=== PATIENT | female | born 1960 | race Caucasian/White ===

== ENCOUNTER 2017-06-29 20:13 | Inpatient (IN) ==
[2017-06-29] MEDS ORDERED: Ipratropium/Albuterol Neb 3 ML IH ONE (20:19)
--- NOTE | 2017-06-29 20:21 | Emergency Department Note ---
Disposition Clinical Impression: Hyponatremia, Chest wall pain Disposition: Admitted As Inpatient Condition: Good Referrals: Mateo Way DO [Primary Care Provider] - Forms: ED Satisfaction Letter Chest Pain HPI - General Chief Complaint: ED Chest Pain Stated Complaint: CP Time Seen by Provider: 06/29/17 20:18 Source: patient Mode of arrival: EMS Limitations: no limitations Vital Signs Reviewed: Yes Nursing Notes Reviewed: Yes - History of Present Illness HPI Narrative: 57-year-old female history of hypertension, seizures, depression who presents to the ER via EMS due to chest pain and shortness of breath. Patient reports symptoms began 2 days ago. Describes constant central chest pain as well as shortness of breath. States she did have an episode of nausea and vomiting prior to arrival and feels like she has had a lot of gas lately. She denies a prior history of cardiac disease. No history of DVT or PE. No recent illnesses. She denies fevers, sore throat, cough, abdominal pain, diarrhea. Normal bowel movements. No prior cardiac workup with the exception of preoperative clearance by cardiology once. She was given 4 baby aspirin prior to arrival. No other complaints. Pt complaint: chest pain Onset (ago): day(s) (2) Duration: constant Pain Location: substernal Severity: moderate Quality: tightness Pain Radiation: none Improves with: nothing Worsens with: palpation Associated symptoms: Reports: nausea, vomiting, dyspnea. Denies: diaphoresis, fever, cough Treatments prior to arrival chest pain: aspirin - Related Data On Oral Contraceptives: No Allergies Allergy/AdvReac Type Severity Reaction Status Date / Time Erythromycin Base Allergy See Verified 06/29/17 20:22 Comments Penicillins Allergy See Verified 06/29/17 20:22 Comments All systems ED: reviewed and negative except as stated. Constitutional: Denies: fever Cardiovascular: Reports: chest pain Respiratory: Reports: dyspnea. Denies: cough, wheezes Gastrointestinal: Reports: nausea, vomiting. Denies: abdominal pain, diarrhea Genitourinary: Denies: dysuria, hematuria Chest Pain PMH - Past Medical History Medical history: Reports: hypertension, seizures Psychiatric history: Reports: depression - Social History Smoking Status: Former smoker Physical Exam - General Limitations: no limitations General appearance: alert, in no apparent distress - Head Head exam: atraumatic, normocephalic - Eye Eye exam: Present: normal appearance - ENT ENT exam: normal exam - Neck Neck exam: Present: normal inspection - Chest Chest inspection: Present: normal inspection, symmetric chest wall rise, tenderness (She has reproducible pain over her sternum) - Respiratory Respiratory exam: Present: normal lung sounds bilaterally. Absent: respiratory distress, wheezes, accessory muscle use, prolonged expiratory phase - Cardiovascular Cardiovascular exam: Present: regular rate, normal rhythm, normal heart sounds - Abdominal Exam Abdominal exam: Present: soft, Non-Tender. Absent: tenderness - Extremities Exam Extremities exam: Present: normal inspection, full ROM - Expanded Upper Extremity Exam Shoulder exam: Present: normal inspection, full ROM Arm exam: Present: normal inspection, full ROM Elbow exam: Present: normal inspection, full ROM Forearm/Wrist exam: Present: normal inspection, full ROM Hand exam: Present: normal inspection, full ROM - Expanded Lower Extremity Exam Hip/Pelvis exam: Present: normal inspection, full ROM Upper leg exam: Present: normal inspection, full ROM Knee exam: Present: normal inspection, full ROM Lower leg exam: Present: normal inspection, full ROM Ankle exam: Present: normal inspection, full ROM Foot/toe exam: Present: normal inspection, full ROM Neurovascular/Tendon exam: Absent: motor deficit, sensory deficit - Neurological Exam Neurological exam: Present: alert - Psychiatric Psychiatric exam: Present: normal affect, normal mood - Skin Skin exam: Present: warm, dry, intact Course Course Narrative: Patient seen and examined. We will obtain an EKG, chest x-ray as well as labs including troponin. She has had 2 days of constant chest pain. I suspect if her troponin is within normal limits she will be able to go home with follow-up to her PCP. Patient given aspirin prior to arrival. - Reevaluation(s) Reevaluation #1: Discussed results of imaging and lab with the patient. She had a severely low sodium of 118. She does report to me that she would have months ago she saw her doctor after having a kidney stone and they told her to drink more water. She states she is having roughly 3 L of water intake a day. We will give her a liter of normal saline and admit for hyponatremia. Seizure precautions ordered. Vital Signs Temperature 98.1 F 06/29/17 20:13 Pulse Rate 66 06/29/17 20:13 Respiratory Rate 18 06/29/17 20:13 Blood Pressure 172/74 06/29/17 20:13 O2 Sat by Pulse Oximetry 100 06/29/17 20:13 Temperature 98.1 F 06/29/17 20:13 Pulse Rate 63 06/29/17 21:18 Respiratory Rate 18 06/29/17 21:18 Blood Pressure 191/74 06/29/17 21:18 O2 Sat by Pulse Oximetry 100 06/29/17 21:18 Oxygen Delivery Oxygen Delivery Room Air Chest Pain - MDM Narrative Medical decision making narrative: 57-year-old female presents to the ER due to weakness, chest pain, shortness of breath. Symptoms for 2 days. Chest pain is reproducible. Her EKG shows no ischemic features. Chest x-ray unremarkable. Initial troponin within normal limits. She was found to have a sodium level of 118. She reports taking 3 L of water daily for the last 2-1/2 months. She will be admitted for hyponatremia given the fact that she also has seizure disorder. Patient accepted by the hospitalist service. - Lab Data Lab results reviewed: Yes I reviewed the patient's lab results. Result diagrams: 06/29/17 20:44 06/29/17 20:44 Lab Results 06/29/17 06/29/17 06/29/17 Range/Units 20:44 20:44 20:44 WBC 8.2 (4.3-11.1) K/mcL RBC 3.76 L (3.82-4.97) M/mcL Hgb 11.0 L (11.5-15.4) g/dL Hct 31.4 L (35.3-44.9) % MCV 83.5 (83.0-100.0) fL MCH 29.3 (28.0-33.3) pg MCHC 35.0 (31.6-35.5) g/dL RDW 12.0 (11.5-14.5) % Plt Count 280 (140-400) K/mcL MPV 8.6 L (9.4-12.4) fL Immature Gran % 0.6 (0-4) % Seg Neutrophils % 72.0 % Lymphocytes % 19.1 % Monocytes % 6.0 % Eosinophils % 1.8 % Basophils % 0.5 % Neutrophils # 5.9 (1.6-8.9) K/mcL Lymphocytes # 1.6 (0.6-4.6) K/mcL Monocytes # 0.5 (0.0-1.3) K/mcL Eosinophils # 0.2 (0.0-0.6) K/mcL Basophils # 0.0 (0.0-0.2) K/mcL Sodium 118 L* (136-145) mEq/L Potassium 4.3 (3.5-4.5) mEq/L Chloride 84 L (98-109) mEq/L Carbon Dioxide 24 (19-29) mEq/L BUN 10 (7-20) mg/dL Creatinine 0.76 (0.57-1.11) mg/dL Est GFR ( Amer) > 60 (> 60) Est GFR (Non-Af Amer) > 60 (> 60) BUN/Creatinine Ratio 13 (6-26) Glucose 128 H (70-99) mg/dL Calculated Osmolality 247 L (280-300) Calcium 9.3 (8.6-10.8) mg/dL Troponin I (0-0.03) ng/mL B-Natriuretic Peptide 67 (0-100) pg/mL 06/29/17 Range/Units 20:44 WBC (4.3-11.1) K/mcL RBC (3.82-4.97) M/mcL Hgb (11.5-15.4) g/dL Hct (35.3-44.9) % MCV (83.0-100.0) fL MCH (28.0-33.3) pg MCHC (31.6-35.5) g/dL RDW (11.5-14.5) % Plt Count (140-400) K/mcL MPV (9.4-12.4) fL Immature Gran % (0-4) % Seg Neutrophils % % Lymphocytes % % Monocytes % % Eosinophils % % Basophils % % Neutrophils # (1.6-8.9) K/mcL Lymphocytes # (0.6-4.6) K/mcL Monocytes # (0.0-1.3) K/mcL Eosinophils # (0.0-0.6) K/mcL Basophils # (0.0-0.2) K/mcL Sodium (136-145) mEq/L Potassium (3.5-4.5) mEq/L Chloride (98-109) mEq/L Carbon Dioxide (19-29) mEq/L BUN (7-20) mg/dL Creatinine (0.57-1.11) mg/dL Est GFR ( Amer) (> 60) Est GFR (Non-Af Amer) (> 60) BUN/Creatinine Ratio (6-26) Glucose (70-99) mg/dL Calculated Osmolality (280-300) Calcium (8.6-10.8) mg/dL Troponin I 0.00 (0-0.03) ng/mL B-Natriuretic Peptide (0-100) pg/mL - Radiology Data Radiology results reviewed: Yes I reviewed the patient's radiology results. Chest X-Ray 06/29/17 20:18 IMPRESSION: No acute cardiopulmonary process. D/ / Dm Betancourt MD / Dm Betancourt MD Interpreting Provider: Dm Betancourt MD - EKG Data EKG attestation: Yes I reviewed and interpreted this EKG. EKG results narrative: EKG demonstrates sinus rhythm with a rate of 65 bpm. Left axis deviation. Poor R-wave progression. Normal intervals. There is slight less than 1 mm depressions in leads aVF, V3 through V5 that appear unchanged from her previous EKG. No gross ST elevations. No significant changes from previous EKG dated 19/11. Heart Score - Score History: Slightly Suspicious EKG: Non Specific repolarisation Disturbance Age: 45-65 Risk Factors: 1-2 risk factors Troponin: Less than normal limit HEART Score Total: 3 Critical Care Time Critical Care Time: Yes Total Critical Care Time: 35 Attestation: Critical care performed: Time is exclusive of separately billable procedures. Time includes: direct patient care, patient reassessment, coordination of patient care, interpretation of data (laboratory data, radiology data, and respiratory data), review of patient's medical records, medical consultation and documentation of patient care. Procedures included in critical care time: Procedures excluded from critical care time: S.B.A.R. - S.B.A.R. Situation: Demographics, MOA Background: Presenting Complaint, Relevant PMH, Meds, & Allergies Assessment: Vital Signs, Course and respsone to treatment, Exam Concerns, Patient/Family Expectation, Pertinant Lab Results Recommendation: Barrier(s) to disposition, Recommendation based on pending studies, treatments, or consults Jorden Report Given to: Dr. Sandro Leonardo Repor Time: 22:09 Attestation Statement - Attestation Attestation: I, Eric Holley DO, examined this patient [id number] and my medical decision-making was reviewed with Dr. Girma Em, Resident Physician. I agree with the documented findings, disposition and treatment plan as described except to the extent set forth below. Please see my progress notes for details. 57-year-old female presents emergency room with 2-3 days worth of chest discomfort pressure and heaviness. Patient is had intermittent nausea and vomiting. Denies any fevers or chills. She has not had any productive cough or sputum. Lungs and vital signs otherwise stable. Heart is regular. Abdomen is soft. EKG to be collected as well as imaging studies including chest x-ray. CBC chemistry troponin will be evaluated and controlled. Breathing treatments to be provided. Patient does not appear to have acute coronary syndrome at this point. She is low risk based on her heart score. Patient will have symptomatic treatment here today and then discuss disposition. Most of her symptoms appear to be heaviness secondary to inability to hold breath and then burning sensation in her lungs. We will continue to monitor his treatment course is completed. Unremarkable. See detailed documentation of the physical exam, medical intervention, medical decision-making and disposition of the resident physician's note [id number] 57-year-old female found to have hyponatremia of unknown etiology. Patient has been ingesting approximately 2-3 gallons of water today coronary secondary to summary telling her that her kidney function was not as good as it used to be. Patient denies any other complaints at this point the rest of her examination is unremarkable. Patient to be provided with IV fluid hydration here and otherwise free water restriction at this point. Disposition will be admission to hospital for definitive management.
[2017-06-29 21:09] LABS: Basophils % 0.5 %; Eosinophils # 0.2 K/mcL (0.0-0.6); Eosinophils % 1.8 %; Hematocrit 31.4 % (35.3-44.9); Immature Granulocytes % 0.6 % (0-4); Lymphocytes # 1.6 K/mcL (0.6-4.6); Lymphocytes % 19.1 %; Mean Corpuscular Hemoglobin 29.3 pg (28.0-33.3); Mean Corpuscular Volume 83.5 fL (83.0-100.0); Mean Platelet Volume 8.6 fL (9.4-12.4); Monocytes # 0.5 K/mcL (0.0-1.3); Neutrophils # 5.9 K/mcL (1.6-8.9); Platelet Count 280 K/mcL (140-400); Red Blood Count 3.76 M/mcL (3.82-4.97)
[2017-06-29 21:22] LABS: BUN/Creatinine Ratio 13 (6-26); Blood Urea Nitrogen 10 mg/dL (7-20); Calcium 9.3 mg/dL (8.6-10.8); Carbon Dioxide 24 mEq/L (19-29); Chloride 84 mEq/L (98-109); Glucose 128 mg/dL (70-99); Osmolality,Calculated 247 (280-300); Potassium 4.3 mEq/L (3.5-4.5); eGFR For African Americans > 60 (> 60); eGFR For Non-African Americans > 60 (> 60)
[2017-06-29] MEDS ORDERED: methylPREDNISolone 125 MG/2 ML VIAL IVP ONE (21:23)
[2017-06-29 21:27] LABS: Sodium 118 mEq/L (136-145)
[2017-06-29] MEDS ORDERED: 0.9 % Sodium Chloride 1,000 ML IVC ONE (21:29)
[2017-06-30] MEDS ORDERED: Naloxone 0.4 MG/ML INJ IVP PRN (01:03)
[2017-06-30] MEDS ORDERED: Acetaminophen 325 MG TABLET PO PRN (01:03)
[2017-06-30] MEDS ORDERED: *HR* Morphine 2 MG/ML SYRINGE IVP PRN (01:03)
[2017-06-30] MEDS ORDERED: *HR* Promethazine 25 MG/ML VIAL IVP PRN (01:03)
[2017-06-30] MEDS ORDERED: *HR* Promethazine 25 MG/ML VIAL ONE (01:30)
--- NOTE | 2017-06-30 01:37 | Internal Med History&Physical ---
Date of Encounter: 06/30/17 Time of Encounter: 00:45 Assessment and Plan (1) Chest pain Current visit: Yes Status: Acute 1. Will cycle troponins and EKG's. 2. Will order ECHO. 3. Patient will need stress test once hyponatremia issue resolved -- can be done as outpatient. Qualifiers: Chest pain type: precordial pain Qualified Code(s): R07.2 - Precordial pain (2) Hyponatremia Current visit: Yes Status: Acute 1. Will stop Dyazide. 2. Monitor serial sodium levels every 6 hours for now. 3. Fluid restriction 1500 ml. 4. Patient counseled on the risks of polydipsia. (3) Hypertension Current visit: Yes Status: Chronic 1. Continue home meds as appropriate. 2. Will add hydralazine PRN for uncontrolled HTN. 3. Monitor BP and adjust meds as needed. Qualifiers: Hypertension type: essential hypertension Qualified Code(s): I10 - Essential (primary) hypertension (4) DVT prophylaxis Current visit: Yes Status: Acute 1. Heparin SQ. Internal Medicine - H&P: HPI Chief complaint: chest pain Admitted From: Emergency Dept Plans for Post Hospital Care: Home History of present illness: Ms. Thorpe is a 57 year old female who presents with a 2 day history of chest pain which she describes as substernal and heavy pressure in nature. It was unrelated to rest or activity. She had associated shortness of breath. She had some diaphoresis as well. She came to the ER for evaluation and was subsequently admitted. Initial workup was negative. However, she was found to have profound hyponatremia with a sodium of 118. I'm not exactly sure why, but the patient received a liter of saline and Solu-Medrol in the ER prior to being admitted to the hospitalist service. Upon my assessment of the patient, she has no chest pain or shortness of breath presently. She denies ever being told she has any history of sodium problems. However, I researched old records and the last set of labs I could find on her was about 11 years ago. She was noted have sodium levels in the 120s to 130s at that time. She has been on Dyazide for many years. Additionally, she has been on Trileptal for many years for seizure disorder. She denies any head trauma, stroke, or any brain abnormalities to suggest etiology for hyponatremia. She does drink a significant amount of water per day (roughly 2- 3 L per day), because she was advised as such for her history of kidney stones. I suspect her hyponatremia is secondary to her Dyazide diuretic as well as her polydipsia. I also inquired with our pharmacy regarding the possibility of hyponatremia with Trileptal. It has about a 1-5% incidence of hyponatremia as well. Past Med Surg Social Fam HX - Past Medical History Attestation: Yes The following information was validated with the patient. Source: patient, obtained from family Medical history: hypertension, seizures Psychiatric history: depression - Past Surgical History Surgical History: knee replacement - Social History Smoking Status: Former smoker Smokeless Tobacco Status: No Alcohol use: occasionally Drug use: none Current living situation: Home, With Family Activity Level: Independent ambulation - Family History Mother Adopted: No Living Status: Age at : 72 Cause of : unknown Hx Family Neurologic Disorders: Yes (MS) Father Living Status: Hx Family Cardiac Disorders: Yes Internal Medicine - H&P: Meds Atenolol [Tenormin] 25 mg PO BID 06/29/17 [History] OXcarbazepine [Trileptal] 1,200 mg PO HS 06/29/17 [History] OXcarbazepine [Trileptal] 900 mg PO QAM 06/29/17 [History] Triamterene/HCTZ 37.5/25mg [Dyazide] 1 each PO DAILY 06/29/17 [History] 3 Allergy/AdvReac Type Severity Reaction Status Date / Time Erythromycin Base Allergy See Verified 06/29/17 20:22 Comments Penicillins Allergy See Verified 06/29/17 20:22 Comments - Constitutional Constitutional: no chills, no fever(s), no night sweats - EENT Eyes: no blurry vision, no change in vision Ears: no ear pain, no tinnitus Nose, mouth and throat: no nasal congestion, no nasal discharge, no sinus pressure, no sore throat - Cardiovascular Cardiovascular ROS IM: chest pain, diaphoresis, dyspnea, dyspnea on exertion, no edema, no orthopnea, no palpitations - Respiratory Respiratory: no cough, no dyspnea, no hemoptysis - Gastrointestinal Gastrointestinal: no abdominal pain, no diarrhea, no hematemesis, no hematochezia, no melena, no nausea, no vomiting - Genitourinary Genitourinary: no dysuria, no flank pain, no hematuria - Musculoskeletal Musculoskeletal ROS IM: no arthralgias, no back pain, no muscle cramps, no muscle weakness - Integumentary Integumentary IM: no rash, no jaundice - Neurological Neurological ROS: convulsions (~ once every 2-3 months), no focal weakness, no frequent falls, no headache(s) - Psychiatric Psychiatric: no anxiety, no depression - Endocrine Endocrine IM: no polydipsia, no polyuria - Allergic/Immunologic Allergic/Immunologic: no wheezing, no GI upset with certain foods - Constitutional Vitals: Temp Pulse Resp BP Pulse Ox 98.6 F 76 16 178/71 96 06/29/17 23:04 06/30/17 01:09 EST 06/29/17 23:04 06/30/17 01:09 EST 23:04 General appearance: Present: cooperative, A&O X 3, pleasant, no acute distress - Head Head exam: Present: atraumatic, normal inspection - Expanded Head Exam Head exam expanded: Absent: abrasion, contusion, general tenderness - Eye Eye exam: Present: EOMI, normal appearance, PERRL. Absent: scleral icterus Pupils: Present: normal accommodation - ENT ENT exam: Present: mucous membranes moist, normal exam - Neck Neck exam general surgery: Present: full ROM, supple. Absent: tenderness, nuchal rigidity - Expanded Neck Exam Neck exam: Absent: carotid bruit - Respiratory Respiratory exam: Present: CTAB. Absent: chest wall tenderness, rales, respiratory distress, rhonchi, wheezes - Cardiovascular Cardiovascular exam: Present: RRR, +S1, +S2. Absent: diastolic murmur, systolic murmur - GI/Abdominal GI/Abdominal exam: Present: normal bowel sounds, soft. Absent: hepatomegaly, mass, splenomegaly, tenderness - Extremities Exam Extremities exam: Present: warm, radial pulses palpable and symmetrical. Absent : calf tenderness, joint swelling, pedal edema, tenderness - Back Exam Back exam: Absent: CVA tenderness (L), CVA tenderness (R) - Neurological Exam Neurological exam: Present: alert, CN II-XII intact, oriented X3, no focal deficits, strengths equal and symetr throughout - Psychiatric Psychiatric exam: Present: normal affect, normal mood - Skin Skin exam: Present: dry, warm. Absent: rash Internal Med - H&P Results - Labs CBC & Chem 7: 06/29/17 20:44 06/29/17 20:44 - EKG Data -: EKG Interpreted by Myself EKG shows normal: sinus rhythm - EKG Data Prior EKG available for review: no EKG comments: 06/30/17 01:58 EST Sinus rhythm with LAD; Poor R wave progression in precordial leads. - Diagnostic Studies Chest x-ray Status: image reviewed by me (negative)
[2017-06-30] MEDS: OXcarbazepine 150 MG TABLET PO SCH ×3 (01:53→21:43)
[2017-06-30 03:08] LABS: INR 1.1; Prothrombin Time 11.3 Seconds (9.4-12.1)
[2017-06-30 03:11] LABS: Activated Partial Thrombo Time 26.2 Seconds (26.0-36.0)
[2017-06-30 03:13] LABS: BUN/Creatinine Ratio 12 (6-26); Blood Urea Nitrogen 10 mg/dL (7-20); Calcium 9.2 mg/dL (8.6-10.8); Carbon Dioxide 22 mEq/L (19-29); Chloride 85 mEq/L (98-109); Glucose 163 mg/dL (70-99); Osmolality,Calculated 249 (280-300); Potassium 3.8 mEq/L (3.5-4.5); eGFR For African Americans > 60 (> 60); eGFR For Non-African Americans > 60 (> 60)
[2017-06-30 03:14] LABS: Alanine Aminotransferase 21 Units/L (0-55); Albumin 3.5 g/dL (3.5-5.0); Albumin/Globulin Ratio 0.9 (1.1-2.2); Alkaline Phosphatase 108 Units/L (38-126); Aspartate Amino Transferase 17 Units/L (5-34); BUN/Creatinine Ratio 12 (6-26); Bilirubin,Total 0.5 mg/dL (0.2-1.2); Blood Urea Nitrogen 10 mg/dL (7-20); Calcium 9.1 mg/dL (8.6-10.8); Carbon Dioxide 23 mEq/L (19-29); Chloride 84 mEq/L (98-109); Chol/HDL Ratio 3.5 (0-4.9); Cholesterol 242 mg/dL (< 200); Globulin 3.8 g/dL (2.4-3.5); Glucose 164 mg/dL (70-99); HDL Cholesterol 69 mg/dL (40-59); LDL Cholesterol,Calculated 152 mg/dL (0-99); Magnesium 1.5 mg/dL (1.6-2.6); Osmolality,Calculated 247 (280-300); Potassium 3.7 mEq/L (3.5-4.5); Total Protein 7.3 g/dL (6.0-8.3); Triglycerides 103 mg/dL (< 150); eGFR For African Americans > 60 (> 60); eGFR For Non-African Americans > 60 (> 60)
[2017-06-30 03:16] LABS: Sodium 118 mEq/L (136-145)
[2017-06-30 03:21] LABS: Sodium 117 mEq/L (136-145)
[2017-06-30] MEDS: *HR* Heparin 5,000 UNIT/ML VIAL SQ SCH ×3 (05:33→21:43)
[2017-06-30] MEDS ORDERED: 0.9 % Sodium Chloride 500 ML IVC ONE (08:15)
[2017-06-30] MEDS: amLODIPine 5 MG TABLET PO SCH (08:28)
[2017-06-30 08:57] LABS: BUN/Creatinine Ratio 14 (6-26); Blood Urea Nitrogen 10 mg/dL (7-20); Calcium 8.9 mg/dL (8.6-10.8); Carbon Dioxide 22 mEq/L (19-29); Chloride 87 mEq/L (98-109); Glucose 122 mg/dL (70-99); Osmolality,Calculated 246 (280-300); Potassium 4.2 mEq/L (3.5-4.5); eGFR For African Americans > 60 (> 60); eGFR For Non-African Americans > 60 (> 60)
[2017-06-30 09:06] LABS: Sodium 118 mEq/L (136-145)
--- NOTE | 2017-06-30 10:04 | Internal Med Progress Note ---
Date of Encounter: 06/30/17 Time of Encounter: 10:02 - Assessment and plan (1) Hyponatremia Current Visit: Yes Status: Acute Assessment and plan: Acute on chronic Na 117-118 Continue to monitor q6H Give NaCl 500cc Patient is asymptomatic Continue to hold diuretics (2) Morbid obesity with BMI of 60.0-69.9, adult Current Visit: Yes Status: Chronic Assessment and plan: Lifestyle modification PCP to consider for Bariatric surgery (3) Chest pain Current Visit: Yes Status: Acute Assessment and plan: Atypical Trops negative X3 EKG non-ischemic Follow ECHO reports Qualifiers: Chest pain type: precordial pain Qualified Code(s): R07.2 - Precordial pain (4) Hypertension Current Visit: Yes Status: Chronic Assessment and plan: Uncontrolled Add Norvasc to regimen Qualifiers: Hypertension type: essential hypertension Qualified Code(s): I10 - Essential (primary) hypertension (5) DVT prophylaxis Current Visit: Yes Status: Acute Assessment and plan: Heparin SQ (6) Hypomagnesemia Current Visit: Yes Status: Acute Assessment and plan: Replaced, monitor - Subjective Interval history: Seen and evaluated at bedside No new complains She is being managed for chest pain and hyponatremia - Constitutional Vitals: Temp Pulse Resp BP Pulse Ox 98.0 F 78 14 164/72 99 06/30/17 06:53 06/30/17 06:53 06/30/17 06:53 06/30/17 06:53 06/30/17 06:53 General appearance: Present: cooperative, A&O X 3, morbidly obese, pleasant, no acute distress - Head Head exam: Present: atraumatic, normocephalic - Eye Eye exam: Present: PERRL, conjuntiva pink, sclera anicteric Pupils: Present: PERRL - Neck Neck exam general surgery: Present: supple, trachea midline. Absent: lymphadenopathy - Respiratory Respiratory exam: Present: CTAB. Absent: accessory muscle use, rales, rhonchi, wheezes - Cardiovascular Cardiovascular exam: Present: RRR, +S1, +S2. Absent: diastolic murmur, gallop, rubs, systolic murmur - GI/Abdominal GI/Abdominal exam: Present: normal bowel sounds, soft, no peritoneal signs. Absent: distended, tenderness - Extremities Exam Extremities exam: Present: warm, radial pulses palpable and symmetrical. Absent : calf tenderness, cyanotic, pedal edema - Neurological Exam Neurological exam: Present: alert, CN II-XII intact, oriented X3, no focal deficits. Absent: pronater drift, facial droop, speech deficit - Skin Skin exam: Present: dry, intact Internal Medicine: Result - Labs CBC & Chem 7: 06/29/17 20:44 06/30/17 08:35 Labs: BMP 06/30/17 06/30/17 06/30/17 02:30 02:30 08:35 Sodium 118 L* 117 L* 118 L* Potassium 3.8 3.7 4.2 Chloride 85 L 84 L 87 L Carbon Dioxide 22 23 22 BUN 10 10 10 Creatinine 0.83 0.84 0.70 Glucose 163 H 164 H 122 H Calcium 9.2 9.1 8.9 Cardiac Enzymes 06/30/17 06/30/17 Range/Units 02:30 08:35 Troponin I 0.00 0.01 (0-0.03) ng/mL Liver Function 06/30/17 Range/Units 02:30 Total Bilirubin 0.5 (0.2-1.2) mg/dL AST 17 (5-34) Units/L ALT 21 (0-55) Units/L Alkaline Phosphatase 108 (38-126) Units/L Albumin 3.5 (3.5-5.0) g/dL - ABG Interpretation ABG results: PT/INR, D-dimer PT 11.3 Seconds (9.4-12.1) 06/30/17 02:30 Consult Discharge Plan - Plan Referrals: Mateo Way DO [Primary Care Provider] -
[2017-06-30] MEDS ORDERED: Perflutren Lipid Microsphere 1.3 ML in 0.9 % Sodium Chloride 8.7 ML IVP ONE (13:57)
[2017-06-30 16:13] LABS: BUN/Creatinine Ratio 15 (6-26); Blood Urea Nitrogen 12 mg/dL (7-20); Calcium 8.7 mg/dL (8.6-10.8); Carbon Dioxide 18 mEq/L (19-29); Chloride 89 mEq/L (98-109); Glucose 152 mg/dL (70-99); Osmolality,Calculated 255 (280-300); Potassium 3.6 mEq/L (3.5-4.5); Sodium 121 mEq/L (136-145); eGFR For African Americans > 60 (> 60); eGFR For Non-African Americans > 60 (> 60)
[2017-06-30 21:33] LABS: BUN/Creatinine Ratio 19 (6-26); Blood Urea Nitrogen 14 mg/dL (7-20); Calcium 8.9 mg/dL (8.6-10.8); Carbon Dioxide 20 mEq/L (19-29); Chloride 89 mEq/L (98-109); Glucose 136 mg/dL (70-99); Osmolality,Calculated 253 (280-300); Potassium 3.9 mEq/L (3.5-4.5); eGFR For African Americans > 60 (> 60); eGFR For Non-African Americans > 60 (> 60)
[2017-06-30 21:36] LABS: Sodium 120 mEq/L (136-145)
[2017-07-01 02:00] LABS: BUN/Creatinine Ratio 18 (6-26); Blood Urea Nitrogen 13 mg/dL (7-20); Calcium 8.6 mg/dL (8.6-10.8); Carbon Dioxide 19 mEq/L (19-29); Chloride 91 mEq/L (98-109); Glucose 113 mg/dL (70-99); Osmolality,Calculated 253 (280-300); Sodium 121 mEq/L (136-145); eGFR For African Americans > 60 (> 60); eGFR For Non-African Americans > 60 (> 60)
[2017-07-01] MEDS: *HR* Heparin 5,000 UNIT/ML VIAL SQ SCH ×2 (06:14→14:07)
[2017-07-01 07:42] LABS: BUN/Creatinine Ratio 17 (6-26); Blood Urea Nitrogen 13 mg/dL (7-20); Calcium 8.8 mg/dL (8.6-10.8); Carbon Dioxide 22 mEq/L (19-29); Chloride 90 mEq/L (98-109); Glucose 117 mg/dL (70-99); Osmolality,Calculated 257 (280-300); Potassium 3.8 mEq/L (3.5-4.5); Sodium 123 mEq/L (136-145); eGFR For African Americans > 60 (> 60); eGFR For Non-African Americans > 60 (> 60)
[2017-07-01] MEDS: amLODIPine 5 MG TABLET PO SCH (08:38)
[2017-07-01] MEDS: OXcarbazepine 150 MG TABLET PO SCH (08:39)
--- NOTE | 2017-07-01 10:47 | Discharge Summary ---
Date of Encounter: 07/01/17 Time of Encounter: 10:46 - Discharge Diagnosis (1) Hyponatremia Priority: Primary Status: Acute Comments: Acute on chronic Na on arrival 117 Improved with saline and discontinuation of diuretics Patient is asymptomatic Na this morning is 123. Chart review shows chronic hyponatremia Patient is encouraged to follow up with her PCP regarding her (2) Morbid obesity with BMI of 60.0-69.9, adult Priority: Secondary Status: Chronic Comments: Lifestyle changes encouraged Educated to discuss bariatric surgery with PCP (3) Chest pain Priority: Primary Status: Resolved Comments: Non-specific Troponin and EKG WNL ECHO is noted for no WMA and normal EF Qualifiers: Chest pain type: precordial pain Qualified Code(s): R07.2 - Precordial pain (4) Hypertension Priority: Secondary Status: Chronic Comments: Uncontrolled, after stopping diuretics patient started on Amlodipine 10mg daily and Losartan 50mg daily Continue home dose of atenolol 25mg bid Follow up with PCP Qualifiers: Hypertension type: essential hypertension Qualified Code(s): I10 - Essential (primary) hypertension (5) DVT prophylaxis Priority: Primary Status: Acute (6) Hypomagnesemia Priority: Primary Status: Resolved - Discharge Medications Home Medications: Atenolol [Tenormin] 25 mg PO BID 06/29/17 [History] Esomeprazole Magnesium [Nexium] 40 mg PO DAILY 06/30/17 [History] Ibuprofen [Motrin] 400 mg PO Q6H PRN 06/30/17 [History] Methyl Salicylate/Menthol [Muscle Rub Cream] 1 appl TP HS 06/30/17 [History] OXcarbazepine [Oxcarbazepine] 1,200 mg PO HS 06/30/17 [History] OXcarbazepine [Oxcarbazepine] 900 mg PO QAM 06/30/17 [History] Allergies/Adverse Reactions: 3 Allergy/AdvReac Type Severity Reaction Status Date / Time Erythromycin Base Allergy See Verified 06/29/17 20:22 Comments Penicillins Allergy See Verified 06/29/17 20:22 Comments Procedures/tests Complete & Pending: Procedures Performed prior 72 hours Category Date Time Status ECG 12 lead ECG [ECG] AM 0600 Y 06/30/17 06:00 Ordered EV echocardiogram w enhance Routine Y 06/30/17 01:03 Completed Date of admission: 06/30/17 01:06 EDT Primary care physician: Mateo Way Discharging clinician: Matthew Funk Anticipated date of discharge: 07/01/17 - Patient Status Disposition: Home, Self-Care Condition: Good Functional capacity at discharge: independent ambulation Overall status at discharge: patient is back to baseline - Discharge Instructions Instructions: Chest Pain (DC), Hyponatremia (DC) Follow Up With: Mateo Way, DO [Primary Care Provider] - (please call to follow up.) - Diet and Activity Activity: resume usual activities as tolerated Diet: low fat, low cholesterol, low salt diet Interval History: See below Hospital course: Ms. Thorpe is a 57 year old female with PMH of HTN, Seizure disorder, Morbid Obesity She is admitted for chest pain work up and incidentally found to have hyponatremia Patient was asymptomatic and did not know of her prior Na level However, chart review shows na of 121 at some point Since patient's sodium is improved and her Na is possibly chronically due to use of antiseizure medications She is asymptomatic Follow up with PCP on current medications Chest pain has resolved, ECHO is unremarkable, troponin is negative. EKG is non- ischemic. - Time Spent with Patient Total time spent providing and/or coordinating discharge services: Greater than 30 minutes - Constitutional Vitals: Temp Pulse Resp BP Pulse Ox 98.1 F 59 18 190/81 99 07/01/17 07:52 07/01/17 07:52 07/01/17 07:52 07/01/17 07:52 07/01/17 07:52 General appearance: Present: cooperative, A&O X 3, morbidly obese, pleasant, no acute distress - Head Head exam: Present: atraumatic, normocephalic - Eye Eye exam: Present: PERRL, conjuntiva pink, sclera anicteric Pupils: Present: PERRL - Neck Neck exam general surgery: Present: supple, trachea midline. Absent: lymphadenopathy - Respiratory Respiratory exam: Present: CTAB. Absent: accessory muscle use, rales, rhonchi, wheezes - Cardiovascular Cardiovascular exam: Present: RRR, +S1, +S2. Absent: diastolic murmur, gallop, rubs, systolic murmur - GI/Abdominal GI/Abdominal exam: Present: normal bowel sounds, soft, no peritoneal signs. Absent: distended, tenderness - Extremities Exam Extremities exam: Present: warm, radial pulses palpable and symmetrical. Absent : calf tenderness, cyanotic, pedal edema - Neurological Exam Neurological exam: Present: alert, CN II-XII intact, oriented X3, no focal deficits. Absent: pronater drift, facial droop, speech deficit - Skin Skin exam: Present: dry, intact
[2017-07-01 14:51] LABS: BUN/Creatinine Ratio 14 (6-26); Blood Urea Nitrogen 12 mg/dL (7-20); Calcium 9.1 mg/dL (8.6-10.8); Carbon Dioxide 23 mEq/L (19-29); Chloride 91 mEq/L (98-109); Glucose 162 mg/dL (70-99); Osmolality,Calculated 263 (280-300); Potassium 4.3 mEq/L (3.5-4.5); Sodium 125 mEq/L (136-145); eGFR For African Americans > 60 (> 60); eGFR For Non-African Americans > 60 (> 60)
[2017-07-01 15:04] VITALS: BP 132/62
--- NOTE | 2017-07-01 17:06 | Electrocardiograph Report ---
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
== END 2017-07-01 15:53 | disposition home or self-care (01) | DRG 641 ==
LOC: EMEROO 20:13 → 2ANU 20:13
PROVIDERS: ADMIT Pediatrics; ATTEND Internal Medicine

== ENCOUNTER 2017-07-17 16:10 | Inpatient (IN) ==
--- NOTE | 2017-07-17 16:56 | Emergency Department Note ---
Disposition Clinical Impression: Congestive heart failure Qualifiers: Congestive heart failure type: unspecified congestive heart failure type Congestive heart failure chronicity: acute Qualified Code(s): I50.9 - Heart failure, unspecified Disposition: Admitted As Inpatient Condition: Fair SOB HPI - General Chief Complaint: ED Shortness of Breath/Dyspnea Stated Complaint: AUGUSTO Time Seen by Provider: 07/17/17 16:25 Source: family Limitations: no limitations Nursing Notes Reviewed: Yes Vital Signs Reviewed: Yes - History of Present Illness Patient presents with shortness of breath last 10 days which is constant and worse with exertion she does have orthopnea but does not have paroxysmal nocturnal dyspnea. She does not have any history of congestive heart failure. Has had recent increased swelling of bilateral lower extremities but no recent weight gain that she is aware of. She denies any rhinorrhea, cough or sneezing. No chest pain, tightness, discomfort or pressure. Social history: No smoking or alcohol. Is here with her son - Related Data Home Medications Medication Instructions Recorded Confirmed Esomeprazole Magnesium [Nexium] 40 mg PO DAILY 06/30/17 07/17/17 Ibuprofen [Motrin] 400 mg PO Q6H PRN 06/30/17 07/17/17 Methyl Salicylate/Menthol [Muscle 1 appl TP HS 06/30/17 07/17/17 Rub Cream] OXcarbazepine [Oxcarbazepine] 1,200 mg PO HS 06/30/17 07/17/17 OXcarbazepine [Oxcarbazepine] 900 mg PO QAM 06/30/17 07/17/17 Atenolol [Tenormin] 50 mg PO BID 07/17/17 07/17/17 amLODIPine [Norvasc] 5 mg PO DAILY 07/17/17 07/17/17 Allergies Allergy/AdvReac Type Severity Reaction Status Date / Time Erythromycin Base Allergy See Verified 06/29/17 20:22 Comments Penicillins Allergy See Verified 06/29/17 20:22 Comments Review of Systems: Constitutional: No fever Vision: No blurred vision ENT: No rhinorrhea Respiratory: No cough Allergic: No allergies : No blood in urine GI: No blood in stool Hematologic: No bruising Dermatologic: No skin rash Musculoskeletal: No pain in the extremities Neuro: No numbness of the extremities Past Medical History - Past Medical History Medical history: Reports: hypertension, seizures Surgical history: Reports: knee replacement Psychiatric history: Reports: depression - Social History Smoking Status: Former smoker Smokeless Tobacco Status: No Alcohol use: Reports: none Drug use: Reports: none Physical Exam CONSTITUTIONAL: Alert and oriented X3, well-nourished, well appearing, in no apparent distress HEAD: Normocephalic; atraumatic. EYES: PERRL, no scleral icterus. NOSE: The nose is normal in appearance without rhinorrhea RESP: Normal chest excursion with respiration; breath sounds clear and equal bilaterally; no wheezes, rhonchi, or rales CARD: Regular rhythm, without murmurs, rub or gallop ABD: Non-distended; non-tender, soft,without rigidity, rebound or guarding SKIN: Normal for age and race; warm and dry; no apparent lesions Extremities: Bilateral lower extremity pretibial peripheral edema 3+ symmetric, skin color is normal without signs of infection, pulses are 2+ in all 4 extremities - General Limitations: no limitations General appearance: alert, in no apparent distress Course - Consultations Consultation #1: The hospitalist, Dr. Campbell, was consulted and accepted admission of the patient. Time: 19:30 Vital Signs Temperature 97.6 F 07/17/17 16:13 Pulse Rate 62 07/17/17 16:13 Respiratory Rate 20 07/17/17 16:13 Blood Pressure 200/75 07/17/17 16:13 O2 Sat by Pulse Oximetry 97 07/17/17 16:13 Temperature 97.6 F 07/17/17 16:13 Pulse Rate 61 07/17/17 19:59 Respiratory Rate 16 07/17/17 19:59 Blood Pressure 206/84 07/17/17 19:59 O2 Sat by Pulse Oximetry 95 07/17/17 19:59 Oxygen Delivery Oxygen Delivery Room Air Shortness of Breath/Dyspnea - MDM Narrative Medical decision making narrative: The patient's clinical presentation is concerning for heart failure however she did have an echocardiogram on June 30 which showed a normal ejection fraction so we did order labs which are pending including BNP. The patient is stable at this time. No medications for now. 1700 I did review the EKG showing normal sinus rhythm with rate of 62 and anterior T- wave inversion which is new compared to previous EKG from June 29 1837 The patient only has a minimally elevated BNP but does have pulmonary edema on chest x-ray and a clinical picture suggestive of heart failure and additionally does have new anterior T-wave inversion patient will be admitted to medicine and they are paged at this time. Patient did receive Lasix 40 mg IV and nitroglycerin paste 1 inch 1840 - Lab Data Result diagrams: 07/17/17 17:53 07/17/17 17:53 Lab Results 07/17/17 07/17/17 07/17/17 Range/Units 17:53 17:53 17:53 WBC 8.2 (4.3-11.1) K/mcL RBC 4.20 (3.82-4.97) M/mcL Hgb 12.1 (11.5-15.4) g/dL Hct 36.7 (35.3-44.9) % MCV 87.4 (83.0-100.0) fL MCH 28.8 (28.0-33.3) pg MCHC 33.0 (31.6-35.5) g/dL RDW 12.9 (11.5-14.5) % Plt Count 293 (140-400) K/mcL MPV 8.8 L (9.4-12.4) fL Immature Gran % 0.6 (0-4) % Seg Neutrophils % 67.6 % Lymphocytes % 20.2 % Monocytes % 8.2 % Eosinophils % 2.7 % Basophils % 0.7 % Neutrophils # 5.5 (1.6-8.9) K/mcL Lymphocytes # 1.7 (0.6-4.6) K/mcL Monocytes # 0.7 (0.0-1.3) K/mcL Eosinophils # 0.2 (0.0-0.6) K/mcL Basophils # 0.1 (0.0-0.2) K/mcL Immature Plt Fraction 1.6 (1.1-6.1) % Sodium 132 L (136-145) mEq/L Potassium 4.3 (3.5-4.5) mEq/L Chloride 99 (98-109) mEq/L Carbon Dioxide 22 (19-29) mEq/L BUN 12 (7-20) mg/dL Creatinine 0.75 (0.57-1.11) mg/dL Est GFR ( Amer) > 60 (> 60) Est GFR (Non-Af Amer) > 60 (> 60) BUN/Creatinine Ratio 16 (6-26) Glucose 100 H (70-99) mg/dL Calculated Osmolality 274 L (280-300) Calcium 9.1 (8.6-10.8) mg/dL Troponin I 0.02 (0-0.03) ng/mL B-Natriuretic Peptide (0-100) pg/mL 07/17/17 Range/Units 17:53 WBC (4.3-11.1) K/mcL RBC (3.82-4.97) M/mcL Hgb (11.5-15.4) g/dL Hct (35.3-44.9) % MCV (83.0-100.0) fL MCH (28.0-33.3) pg MCHC (31.6-35.5) g/dL RDW (11.5-14.5) % Plt Count (140-400) K/mcL MPV (9.4-12.4) fL Immature Gran % (0-4) % Seg Neutrophils % % Lymphocytes % % Monocytes % % Eosinophils % % Basophils % % Neutrophils # (1.6-8.9) K/mcL Lymphocytes # (0.6-4.6) K/mcL Monocytes # (0.0-1.3) K/mcL Eosinophils # (0.0-0.6) K/mcL Basophils # (0.0-0.2) K/mcL Immature Plt Fraction (1.1-6.1) % Sodium (136-145) mEq/L Potassium (3.5-4.5) mEq/L Chloride (98-109) mEq/L Carbon Dioxide (19-29) mEq/L BUN (7-20) mg/dL Creatinine (0.57-1.11) mg/dL Est GFR ( Amer) (> 60) Est GFR (Non-Af Amer) (> 60) BUN/Creatinine Ratio (6-26) Glucose (70-99) mg/dL Calculated Osmolality (280-300) Calcium (8.6-10.8) mg/dL Troponin I (0-0.03) ng/mL B-Natriuretic Peptide 158 H (0-100) pg/mL
[2017-07-17 18:10] LABS: Basophils # 0.1 K/mcL (0.0-0.2); Basophils % 0.7 %; Eosinophils # 0.2 K/mcL (0.0-0.6); Eosinophils % 2.7 %; Hematocrit 36.7 % (35.3-44.9); Hemoglobin 12.1 g/dL (11.5-15.4); Immature Granulocytes % 0.6 % (0-4); Immature Platelets 1.6 % (1.1-6.1); Lymphocytes # 1.7 K/mcL (0.6-4.6); Lymphocytes % 20.2 %; Mean Corpuscular Hemoglobin 28.8 pg (28.0-33.3); Mean Corpuscular Volume 87.4 fL (83.0-100.0); Mean Platelet Volume 8.8 fL (9.4-12.4); Monocytes # 0.7 K/mcL (0.0-1.3); Monocytes % 8.2 %; Neutrophils # 5.5 K/mcL (1.6-8.9); Platelet Count 293 K/mcL (140-400); Red Cell Distribution Width 12.9 % (11.5-14.5); Segmented Neutrophils % 67.6 %
[2017-07-17 18:16] LABS: BUN/Creatinine Ratio 16 (6-26); Blood Urea Nitrogen 12 mg/dL (7-20); Calcium 9.1 mg/dL (8.6-10.8); Carbon Dioxide 22 mEq/L (19-29); Chloride 99 mEq/L (98-109); Glucose 100 mg/dL (70-99); Osmolality,Calculated 274 (280-300); Sodium 132 mEq/L (136-145); eGFR For African Americans > 60 (> 60); eGFR For Non-African Americans > 60 (> 60)
[2017-07-17 18:17] LABS: Potassium 4.3 mEq/L (3.5-4.5)
[2017-07-17] MEDS ORDERED: Nitroglycerin 1 INCH/GM PACKET TP ONE (18:19)
[2017-07-17] MEDS ORDERED: Furosemide 40 MG/4 ML VIAL IVP ONE (18:19)
[2017-07-17] MEDS ORDERED: Ondansetron 4 MG/2 ML VIAL IVP PRN (21:35)
[2017-07-17] MEDS ORDERED: Naloxone 0.4 MG/ML INJ IVP PRN (21:35)
[2017-07-17] MEDS ORDERED: *HR* Morphine 2 MG/ML SYRINGE IVP PRN (21:35)
[2017-07-17] MEDS ORDERED: *HR* Labetalol 20 MG/4 ML SYRINGE IVP PRN (21:40)
--- NOTE | 2017-07-17 21:43 | Internal Med History&Physical ---
Date of Encounter: 07/17/17 Time of Encounter: 21:30 Assessment and Plan (1) Congestive heart failure Current visit: Yes Status: Acute Acute exacerbation of CHF diastolic dysfunction, LVEF 65% - causing shortness of breath and edema Continue IV Lasix, beta donya, O2 via nasal cannula Chest x-ray - mild pulmonary edema EKG - sinus rhythm with nonspecific ST-T changes BNP - 158 Troponin - 0.02, cycle troponin Echocardiogram - LVEF 65%, moderate LV diastolic dysfunction, normal RV function Cardiac telemetry, strict intake output, daily weight, labs in a.m., monitor closely Qualifiers: Congestive heart failure type: diastolic Congestive heart failure chronicity: acute on chronic Qualified Code(s): I50.33 - Acute on chronic diastolic (congestive) heart failure (2) Hypertension Current visit: No Status: Chronic Essential hypertension, uncontrolled, monitor Continue home meds Norvasc, Tenormin IV Labetalol as needed Qualifiers: Hypertension type: essential hypertension Qualified Code(s): I10 - Essential (primary) hypertension (3) Seizure disorder Current visit: Yes Status: Chronic Chronic seizure disorder, stable Continue home dose of Trileptal (4) Morbid obesity with BMI of 60.0-69.9, adult Current visit: Yes Status: Chronic BMI 60.9, advise lifestyle modification (5) DVT prophylaxis Current visit: Yes Status: Acute Heparin subcutaneous Internal Medicine - H&P: HPI Chief complaint: Shortness of breath Admitted From: Emergency Dept Plans for Post Hospital Care: Home History of present illness: Ms. Thorpe is a 57 year old female with past medical history of hypertension and seizure disorder. She presents to the ED with complaints of shortness of breath. Examined in the room. Patient is awake and alert. Not in any distress. Able to provide all history. Son is at bedside. Patient states over the past 1 week she has had constant shortness of breath which is worse with exertion and also worse when laying flat. She denies chest pain. She also complains of worsening swelling of both lower legs. Denies palpitations or cough or headache or abdominal pain or vomiting. No fever. No alleviating factors. Patient had a recent echocardiogram which shows LVEF 65% with moderate LV diastolic dysfunction. Patient has been given IV Lasix in the ED. She states her shortness of breath has improved. States she has good urine output. No other acute complaints. Initial workup in the ED is significant for slightly elevated BNP peptide. Chest x-ray shows mild pulmonary edema. EKG shows sinus rhythm with nonspecific ST-T changes. Patient is being admitted for CHF exacerbation. She will need IV Lasix. Blood pressure has also been uncontrolled. Patient has been explained about her condition and plan of care in detail. She understood and agreed. No unanswered questions. Past Med Surg Social Fam HX - Past Medical History Medical history: hypertension, seizures Psychiatric history: depression - Past Surgical History Surgical History: knee replacement - Social History Smoking Status: Former smoker Smokeless Tobacco Status: No Alcohol use: none Drug use: none - Family History Mother Adopted: No Living Status: Hx Family Neurologic Disorders: Yes (MS) Father Living Status: Hx Family Cardiac Disorders: Yes Internal Medicine - H&P: Meds Esomeprazole Magnesium [Nexium] 40 mg PO DAILY 06/30/17 [History] Ibuprofen [Motrin] 400 mg PO Q6H PRN 06/30/17 [History] Methyl Salicylate/Menthol [Muscle Rub Cream] 1 appl TP HS 06/30/17 [History] OXcarbazepine [Oxcarbazepine] 1,200 mg PO HS 06/30/17 [History] OXcarbazepine [Oxcarbazepine] 900 mg PO QAM 06/30/17 [History] Atenolol [Tenormin] 50 mg PO BID 07/17/17 [History] amLODIPine [Norvasc] 5 mg PO DAILY 07/17/17 [History] 3 Allergy/AdvReac Type Severity Reaction Status Date / Time Erythromycin Base Allergy See Verified 06/29/17 20:22 Comments Penicillins Allergy See Verified 06/29/17 20:22 Comments All Systems PM: A 10-system review of systems was performed and is negative for pertinent findings except as documented above in the HPI. - Constitutional Constitutional: fatigue, no fever(s), no weakness - EENT Eyes: no blurry vision - Cardiovascular Cardiovascular ROS IM: dyspnea, dyspnea on exertion, edema, no chest pain, no diaphoresis, no lightheadedness, no orthopnea, no palpitations, no syncope - Respiratory Respiratory: dyspnea, dyspnea on exertion, no cough, no hemoptysis, no wheezing , no chest congestion - Gastrointestinal Gastrointestinal: no abdominal pain, no bloating, no cramping, no diarrhea, no hematochezia, no loose stools, no nausea, no vomiting - Genitourinary Genitourinary: no dysuria - Neurological Neurological ROS: no abnormal gait, no confusion, no dizziness, no numbness, no tingling - Constitutional Vitals: Temp Pulse Resp BP Pulse Ox 98.1 F 58 16 203/88 97 07/17/17 20:50 07/17/17 20:50 07/17/17 20:50 07/17/17 20:50 07/17/17 20:50 General appearance: Present: cooperative, A&O X 3, morbidly obese, pleasant, no acute distress, answers questions appropriately - Head Head exam: Present: atraumatic - Eye Eye exam: Present: EOMI - ENT ENT exam: Present: mucous membranes moist - Respiratory Respiratory exam: Present: CTAB. Absent: rales, respiratory distress, rhonchi, wheezes, tachypnea - Cardiovascular Cardiovascular exam: Present: RRR, +S1, +S2 - GI/Abdominal GI/Abdominal exam: Present: soft. Absent: distended, firm, guarding, tenderness - Extremities Exam Extremities exam: Present: pedal edema (Bilateral leg 1+ edema), radial pulses palpable and symmetrical. Absent: calf tenderness, cyanotic - Neurological Exam Neurological exam: Present: alert, oriented X3, no focal deficits. Absent: facial droop, speech deficit Internal Med - H&P Results - Labs CBC & Chem 7: 07/17/17 17:53 07/17/17 17:53
[2017-07-17 21:52] LABS: Bilirubin,Urine Negative (Negative); Blood,Urine Negative (Negative); Clarity,Urine Clear (Clear); Color,Urine Yellow (Yellow); Glucose,Urine (UA) Normal (Normal); Ketones,Urine Negative (Negative); Leukocyte Esterase,Urine Negative (Negative); Nitrite,Urine Negative (Negative); PH,Urine 7.5 pH Units (5.0-8.0); Protein,Urine 30 mg/dL (Neg-Trace); Specific Gravity,Urine 1.018 (1.010-1.025); Urobilinogen,Urine Normal (Normal)
[2017-07-17 21:54] LABS: Bacteria,Urine Few per hpf (None-Few); Hyaline Casts,Urine None Seen per lpf (None-Few); RBC,Urine 0-3 per hpf (0-3); Squamous Epithelial Cell,Urine Many per lpf (None-Few); WBC,Urine 0-3 per hpf (0-3)
[2017-07-17] MEDS: OXcarbazepine 150 MG TABLET PO SCH ×2 (22:30→22:31)
[2017-07-17] MEDS: *HR* Heparin 5,000 UNIT/ML VIAL SQ SCH (22:31)
[2017-07-18 05:28] LABS: Basophils # 0.1 K/mcL (0.0-0.2); Basophils % 0.7 %; Eosinophils # 0.2 K/mcL (0.0-0.6); Eosinophils % 2.2 %; Hematocrit 31.4 % (35.3-44.9); Immature Granulocytes % 0.4 % (0-4); Lymphocytes # 2.4 K/mcL (0.6-4.6); Lymphocytes % 25.2 %; Mean Corpuscular HGB Conc 33.4 g/dL (31.6-35.5); Mean Corpuscular Hemoglobin 28.6 pg (28.0-33.3); Mean Corpuscular Volume 85.6 fL (83.0-100.0); Monocytes # 0.9 K/mcL (0.0-1.3); Monocytes % 9.2 %; Platelet Count 329 K/mcL (140-400); Red Blood Count 3.67 M/mcL (3.82-4.97); Red Cell Distribution Width 12.9 % (11.5-14.5); Segmented Neutrophils % 62.3 %
[2017-07-18 05:29] LABS: Hemoglobin 10.5 g/dL (11.5-15.4)
[2017-07-18 05:39] LABS: INR 1.2; Prothrombin Time 12.6 Seconds (9.4-12.1)
[2017-07-18 05:44] LABS: BUN/Creatinine Ratio 18 (6-26); Blood Urea Nitrogen 14 mg/dL (7-20); Calcium 9.4 mg/dL (8.6-10.8); Carbon Dioxide 29 mEq/L (19-29); Chloride 95 mEq/L (98-109); Glucose 104 mg/dL (70-99); Magnesium 1.7 mg/dL (1.6-2.6); Osmolality,Calculated 279 (280-300); Potassium 3.3 mEq/L (3.5-4.5); Sodium 134 mEq/L (136-145); eGFR For African Americans > 60 (> 60); eGFR For Non-African Americans > 60 (> 60)
[2017-07-18] MEDS: Furosemide 40 MG/4 ML VIAL IVP SCH ×2 (08:23→21:02)
[2017-07-18] MEDS: *HR* Heparin 5,000 UNIT/ML VIAL SQ SCH ×2 (08:23→15:55)
[2017-07-18] MEDS: OXcarbazepine 150 MG TABLET PO SCH ×3 (08:24→21:06)
[2017-07-18] MEDS ORDERED: amLODIPine 5 MG TABLET PO SCH (09:00)
--- NOTE | 2017-07-18 16:14 | Internal Med Progress Note ---
Date of Encounter: 07/18/17 Time of Encounter: 16:07 - Assessment and plan (1) Acute diastolic (congestive) heart failure Current Visit: Yes Status: Acute Assessment and plan: Presented with shortness of breath and lower extremity edema. TTE with EF 65% and diastolic dysfunction. Ex arm with pulmonary edema. BNP 158. Symptoms significantly improved with IV Lasix. Continue diuresis for now, strict intake and output, daily weights. Holding diuretic recently stopped will likely need to be discharged on low-dose Lasix. Would avoid hydrochlorothiazide with recent hyponatremia (2) Hypertension Current Visit: No Status: Chronic Assessment and plan: Per history. Uncontrolled, increase home amlodipine. Continue other home BP medications. Monitor BP and titrate PRN Qualifiers: Hypertension type: essential hypertension Qualified Code(s): I10 - Essential (primary) hypertension (3) Seizure disorder Current Visit: Yes Status: Chronic Assessment and plan: per hx. continue home Trileptal. Seizure precautions. (4) Morbid obesity with BMI of 60.0-69.9, adult Current Visit: Yes Status: Chronic - Subjective Interval history: Seen and examined at bedside. Patient is new to me, information obtained from chart review and patient report. Patient says she feels significantly better today. Still has some lower extremity edema and shortness of breath but overall improved. No chest pain. - Constitutional Vitals: Temp Pulse Resp BP Pulse Ox 98.2 F 65 18 165/84 99 07/18/17 14:51 07/18/17 14:51 07/18/17 14:51 07/18/17 14:51 07/18/17 14:51 General appearance: Present: cooperative, A&O X 3, morbidly obese, pleasant, no acute distress, answers questions appropriately - Head Head exam: Present: atraumatic, normocephalic - Eye Eye exam: Present: PERRL, conjuntiva pink, sclera anicteric Pupils: Present: PERRL - Neck Neck exam general surgery: Present: supple, trachea midline. Absent: lymphadenopathy - Respiratory Respiratory exam: Present: decreased breath sounds, CTAB. Absent: accessory muscle use, rales, rhonchi, wheezes - Cardiovascular Cardiovascular exam: Present: RRR, +S1, +S2. Absent: diastolic murmur, gallop, rubs, systolic murmur - GI/Abdominal GI/Abdominal exam: Present: normal bowel sounds, soft, no peritoneal signs. Absent: distended, tenderness - Extremities Exam Extremities exam: Present: pedal edema, warm, radial pulses palpable and symmetrical. Absent: calf tenderness, cyanotic Additional comments: Trace, nonpitting edema. - Neurological Exam Neurological exam: Present: CN II-XII intact, oriented X3, no focal deficits. Absent: pronater drift, facial droop, speech deficit - Skin Skin exam: Present: dry, intact Internal Medicine: Result - Labs CBC & Chem 7: 07/18/17 04:02 07/18/17 04:02 Labs: Short CBC 07/18/17 Range/Units 04:02 WBC 9.6 (4.3-11.1) K/mcL Hgb 10.5 L D (11.5-15.4) g/dL Hct 31.4 L (35.3-44.9) % Plt Count 329 (140-400) K/mcL Neutrophils # 6.0 (1.6-8.9) K/mcL BMP 07/18/17 04:02 Sodium 134 L Potassium 3.3 L D Chloride 95 L Carbon Dioxide 29 BUN 14 Creatinine 0.79 Glucose 104 H Calcium 9.4 Cardiac Enzymes 07/17/17 07/18/17 07/18/17 Range/Units 22:19 04:02 09:44 Troponin I 0.02 0.02 0.03 (0-0.03) ng/mL - ABG Interpretation ABG results: PT/INR, D-dimer PT 12.6 Seconds (9.4-12.1) H 07/18/17 04:02 Consult Discharge Plan - Plan Referrals: Mateo Way DO [Primary Care Provider] -
[2017-07-18] MEDS ORDERED: amLODIPine 5 MG TABLET PO ONE (16:17)
[2017-07-18] MEDS: Acetaminophen 325 MG TABLET PO PRN (18:33)
[2017-07-19] MEDS: *HR* Heparin 5,000 UNIT/ML VIAL SQ SCH ×4 (00:38→23:58)
[2017-07-19] MEDS: Acetaminophen 325 MG TABLET PO PRN (02:10)
[2017-07-19 06:20] LABS: Hematocrit 33.3 % (35.3-44.9); Mean Corpuscular Hemoglobin 28.6 pg (28.0-33.3); Mean Corpuscular Volume 86.7 fL (83.0-100.0); Mean Platelet Volume 8.8 fL (9.4-12.4); Platelet Count 326 K/mcL (140-400); Red Blood Count 3.84 M/mcL (3.82-4.97); Red Cell Distribution Width 13.2 % (11.5-14.5)
[2017-07-19 06:36] LABS: BUN/Creatinine Ratio 16 (6-26); Blood Urea Nitrogen 13 mg/dL (7-20); Calcium 9.2 mg/dL (8.6-10.8); Carbon Dioxide 28 mEq/L (19-29); Chloride 101 mEq/L (98-109); Glucose 126 mg/dL (70-99); Osmolality,Calculated 288 (280-300); Potassium 3.7 mEq/L (3.5-4.5); Sodium 138 mEq/L (136-145); eGFR For African Americans > 60 (> 60); eGFR For Non-African Americans > 60 (> 60)
[2017-07-19] MEDS: OXcarbazepine 150 MG TABLET PO SCH ×2 (08:40→20:52)
[2017-07-19] MEDS: amLODIPine 5 MG TABLET PO SCH (08:40)
[2017-07-19] MEDS: Furosemide 40 MG/4 ML VIAL IVP SCH ×2 (08:41→20:51)
--- NOTE | 2017-07-19 14:02 | Electrocardiograph Report ---
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
--- NOTE | 2017-07-19 19:18 | Internal Med Progress Note ---
Date of Encounter: 07/19/17 Time of Encounter: 11:00 - Assessment and plan (1) Acute diastolic (congestive) heart failure Current Visit: Yes Status: Acute Assessment and plan: Presented with shortness of breath and lower extremity edema. TTE with EF 65% and diastolic dysfunction. Ex arm with pulmonary edema. BNP 158. Symptoms significantly improved with IV Lasix. Continue diuresis for now, strict intake and output, daily weights. Holding diuretic recently stopped will likely need to be discharged on low-dose Lasix. Would avoid hydrochlorothiazide with recent hyponatremia (2) Hypertension Current Visit: No Status: Chronic Assessment and plan: Per history. Uncontrolled, increased home amlodipine. Continue other home BP medications. Monitor BP and titrate PRN Qualifiers: Hypertension type: essential hypertension Qualified Code(s): I10 - Essential (primary) hypertension (3) Morbid obesity with BMI of 60.0-69.9, adult Current Visit: Yes Status: Chronic Assessment and plan: Lifestyle modifications - Subjective Interval history: No acute events overnight - Constitutional Vitals: Temp Pulse Resp BP Pulse Ox 98.2 F 66 16 137/69 93 07/19/17 18:57 07/19/17 18:57 07/19/17 18:57 07/19/17 18:57 07/19/17 18:57 General appearance: Present: cooperative, A&O X 3, morbidly obese, pleasant, no acute distress, answers questions appropriately - Cardiovascular Cardiovascular exam: Present: RRR, +S1, +S2. Absent: diastolic murmur, gallop, rubs, systolic murmur - GI/Abdominal GI/Abdominal exam: Present: normal bowel sounds, soft, no peritoneal signs. Absent: distended, tenderness Internal Medicine: Result - Labs CBC & Chem 7: 07/19/17 06:11 07/19/17 06:11 Labs: Short CBC 07/19/17 Range/Units 06:11 WBC 8.2 (4.3-11.1) K/mcL Hgb 11.0 L (11.5-15.4) g/dL Hct 33.3 L (35.3-44.9) % Plt Count 326 (140-400) K/mcL BMP 07/19/17 06:11 Sodium 138 Potassium 3.7 Chloride 101 Carbon Dioxide 28 BUN 13 Creatinine 0.83 Glucose 126 H Calcium 9.2 - ABG Interpretation ABG results: PT/INR, D-dimer PT 12.6 Seconds (9.4-12.1) H 07/18/17 04:02 Consult Discharge Plan - Plan Referrals: Mateo Way DO [Primary Care Provider] -
[2017-07-20] MEDS: Acetaminophen 325 MG TABLET PO PRN (03:27)
[2017-07-20 07:11] LABS: Hematocrit 32.2 % (35.3-44.9); Hemoglobin 10.6 g/dL (11.5-15.4); Mean Corpuscular HGB Conc 32.9 g/dL (31.6-35.5); Mean Corpuscular Hemoglobin 28.9 pg (28.0-33.3); Mean Corpuscular Volume 87.7 fL (83.0-100.0); Platelet Count 327 K/mcL (140-400); Red Blood Count 3.67 M/mcL (3.82-4.97); Red Cell Distribution Width 13.4 % (11.5-14.5)
[2017-07-20 07:22] LABS: BUN/Creatinine Ratio 19 (6-26); Blood Urea Nitrogen 19 mg/dL (7-20); Calcium 9.3 mg/dL (8.6-10.8); Carbon Dioxide 26 mEq/L (19-29); Chloride 102 mEq/L (98-109); Glucose 119 mg/dL (70-99); Osmolality,Calculated 293 (280-300); Potassium 3.4 mEq/L (3.5-4.5); Sodium 140 mEq/L (136-145); eGFR For African Americans > 60 (> 60); eGFR For Non-African Americans 55 (> 60)
[2017-07-20] MEDS: *HR* Heparin 5,000 UNIT/ML VIAL SQ SCH (09:01)
[2017-07-20] MEDS: Furosemide 40 MG/4 ML VIAL IVP SCH (09:05)
[2017-07-20] MEDS: amLODIPine 5 MG TABLET PO SCH (09:14)
[2017-07-20] MEDS: OXcarbazepine 150 MG TABLET PO SCH (09:26)
[2017-07-20 11:56] VITALS: BP 140/83
--- NOTE | 2017-07-20 14:19 | Discharge Summary ---
Date of Encounter: 07/20/17 Time of Encounter: 11:00 - Discharge Diagnosis (1) Acute diastolic (congestive) heart failure Priority: Primary Status: Acute (2) Hypertension Priority: Secondary Status: Chronic Qualifiers: Hypertension type: essential hypertension Qualified Code(s): I10 - Essential (primary) hypertension (3) Morbid obesity with BMI of 60.0-69.9, adult Priority: Secondary Status: Chronic - Discharge Medications Prescriptions: Furosemide [Lasix] 20 mg PO DAILY #30 tablet Potassium Chloride 10 meq PO DAILY #30 tab.er.prt Home Medications: Esomeprazole Magnesium [Nexium] 40 mg PO DAILY 06/30/17 [History] Ibuprofen [Motrin] 400 mg PO Q6H PRN 06/30/17 [History] Methyl Salicylate/Menthol [Muscle Rub Cream] 1 appl TP HS 06/30/17 [History] OXcarbazepine [Oxcarbazepine] 1,200 mg PO HS 06/30/17 [History] OXcarbazepine [Oxcarbazepine] 900 mg PO QAM 06/30/17 [History] Atenolol [Tenormin] 50 mg PO BID 07/17/17 [History] amLODIPine [Norvasc] 5 mg PO DAILY 07/17/17 [History] Furosemide [Lasix] 20 mg PO DAILY #30 tablet 07/20/17 [Rx] Potassium Chloride 10 meq PO DAILY #30 tab.er.prt 07/20/17 [Rx] Allergies/Adverse Reactions: 3 Allergy/AdvReac Type Severity Reaction Status Date / Time Erythromycin Base Allergy See Verified 06/29/17 20:22 Comments Penicillins Allergy See Verified 06/29/17 20:22 Comments Date of admission: 07/17/17 21:36 Primary care physician: Mateo Way Consults: 07/19/17 19:20 Consult to Cardiology [CONS] Routine Comment: Consulting Provider: Cardiology Janae Reason for Consult: new chf Call Completed: No - Patient Status Disposition: Home, Self-Care Condition: Fair - Discharge Instructions Follow Up With: Mateo Way DO [Primary Care Provider] - Hospital course: Patient is a 57-year-old female with past medical history significant for hypertension and seizure disorder who presented to the ER on 07/17/17 with shortness of breath. In the ER, patient was found to have elevated BNP and chest x-ray showed mild pulmonary edema. Patient was admitted for CHF exacerbation. During patients hospital stay, an echocardiogram showed mild left ventricular diastolic dysfunction. Her shortness of breath resolved after treatment with IV Lasix. Patient will be discharged to continue oral Lasix in addition to potassium supplementation. She will follow-up with her primary care provider for further management. - Time Spent with Patient Total time spent providing and/or coordinating discharge services: Less than 30 minutes - Constitutional Vitals: Temp Pulse Resp BP Pulse Ox 98.5 F 58 16 140/83 95 07/20/17 11:54 07/20/17 11:54 07/20/17 11:54 07/20/17 11:54 07/20/17 11:54 General appearance: Present: cooperative, A&O X 3, morbidly obese, pleasant, no acute distress, answers questions appropriately - Respiratory Respiratory exam: Present: CTAB. Absent: accessory muscle use, rales, rhonchi, wheezes - Cardiovascular Cardiovascular exam: Present: RRR, +S1, +S2. Absent: diastolic murmur, gallop, rubs, systolic murmur
--- NOTE | 2017-07-20 14:36 | Cardiology Consult Note ---
<Taylor Sow - Last Filed: 07/20/17 14:56> Date of Encounter: 07/20/17 Time of Encounter: 12:00 Assessment and Plan (1) Acute diastolic (congestive) heart failure Status: Acute Per cardiology: -ADmitted with acute diastolic CHF. -TTE with preserved LVEF, moderate diastolic dysufnction. -Chest x-ray with mild pulmonary edema noted. -Reported was more short of breath and had worsening peripheral edema. States symptoms now improved. -On lasix 40mg IV BID. -mild pedal edema noted, states is her baseline. -Weight has decreased almost 8kg since admission. -CHF education given to patient. -Recommend patient be discharged with lasix 40mg PO BID. -Cardiology will sign off. 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 Recommend patient be seen by her rug cleaner within one week. Patient states understanding. Discussion w patient/family: The assessment and plan as outlined above was discussed with the patient who expressed understanding and agreement. All questions were answered. Thank you for involving us in the care of your patient. Please call with any questions. Discussed and reviewed with . History of Present Illness Consult date: 07/19/17 Requesting physician: Kai Ramos Consult reason: CHF Chief complaint: shortness of breath History of present illness: Ms. Thorpe is a 57 year old female with a relevant past medical history of HTN , seizures. Patient presented to [facility] with complaints of increased shortness of breath and increased peripheral edema. Patient reports symptoms are back to baseline now. Denies chest pain. Past Med Surg Social Fam HX - Past Medical History Attestation: Yes The following information was validated with the patient. Source: patient Medical history: hypertension, seizures Psychiatric history: depression - Past Surgical History Surgical History: knee replacement - Social History Smoking Status: Former smoker Smokeless Tobacco Status: No Alcohol use: none Drug use: none - Family History Mother Adopted: No Living Status: Hx Family Neurologic Disorders: Yes (MS) Father Living Status: Age at : 57 Cause of : MO Hx Family Cardiac Disorders: Yes Medications and Allergies Esomeprazole Magnesium [Nexium] 40 mg PO DAILY 06/30/17 [History] Ibuprofen [Motrin] 400 mg PO Q6H PRN 06/30/17 [History] Methyl Salicylate/Menthol [Muscle Rub Cream] 1 appl TP HS 06/30/17 [History] OXcarbazepine [Oxcarbazepine] 1,200 mg PO HS 06/30/17 [History] OXcarbazepine [Oxcarbazepine] 900 mg PO QAM 06/30/17 [History] Atenolol [Tenormin] 50 mg PO BID 07/17/17 [History] amLODIPine [Norvasc] 5 mg PO DAILY 07/17/17 [History] Furosemide [Lasix] 20 mg PO DAILY #30 tablet 07/20/17 [Rx] Potassium Chloride 10 meq PO DAILY #30 tab.er.prt 07/20/17 [Rx] 3 Allergy/AdvReac Type Severity Reaction Status Date / Time Erythromycin Base Allergy See Verified 06/29/17 20:22 Comments Penicillins Allergy See Verified 06/29/17 20:22 Comments All Systems Review: A 10-system review of systems was performed and is negative for pertinent findings except as documented above in the HPI. - Cardiovascular Cardiovascular: as per HPI, dyspnea at rest, dyspnea on exertion, leg edema Physical Examination Vital Signs, Last 4 Hours Temp Pulse Resp BP Pulse Ox 07/20/17 11:54 98.5 F 58 16 140/83 95 General: Conversant, No Apparent Distress HEENT: Atraumatic, Normocephaly, Mucus Membranes Moist Neck: No JVD, Normal carotid pulses Cardiac: Reg Rate and Rhythm, Normal S1 and S2, No Murmur Lungs: Normal Breath Sounds, No Wheeze, Rales, Rhonchi Neuro: Alert and responsive, No focal deficits noted Abdomen: Soft, Non-Tender Skin: No rashes noted on visualized skin Musculoskeletal: No Chest Wall Tenderness Extremities: No Clubbing, No Cyanosis, Normal Pulses, Other (Mild bilateral lower extremity pedal edema noted, non-pitting. ) Results 07/20/17 06:48 07/20/17 06:48 Lab Results Active Medications Acetaminophen (Tylenol) 650 mg PO Q6HR PRN PRN Reason: Mild Pain (1-3) Stop: 01/16/18 21:36 Last Admin: 07/20/17 03:27 Dose: 650 mg Amlodipine Besylate (Norvasc) 10 mg PO DAILY ZENOBIA PRN Reason: Protocol Stop: 01/18/18 09:01 Last Admin: 07/20/17 09:14 Dose: 10 mg Atenolol (Tenormin) 50 mg PO BID [facility] Stop: 01/17/18 09:01 Last Admin: 07/20/17 09:14 Dose: 50 mg Furosemide (Lasix) 40 mg IVP BID [facility] Stop: 01/17/18 09:01 Last Admin: 07/20/17 09:05 Dose: 40 mg Heparin Sodium (Porcine) (Heparin) 5,000 unit SQ Q8HR [facility] Stop: 01/17/18 00:01 Last Admin: 07/20/17 09:01 Dose: 5,000 unit Hydralazine HCl (Hydralazine) 10 mg IVP Q6HR PRN PRN Reason: Hypertension Stop: 01/16/18 22:12 Last Admin: 07/19/17 04:38 Dose: 10 mg Labetalol HCl (Labetalol) 10 mg IVP Q6H PRN PRN Reason: Blood Pressure - High Stop: 01/16/18 21:41 Morphine Sulfate (Morphine Sulfate) 2 mg IVP Q4HR PRN PRN Reason: Severe Pain (7-10) Stop: 01/16/18 21:36 Naloxone HCl (Narcan) 0.4 mg IVP Q2MIN PRN PRN Reason: Opioid Reversal Stop: 01/16/18 21:36 Omeprazole (Prilosec) 20 mg PO DAILY [facility] Stop: 01/17/18 09:01 Last Admin: 07/20/17 09:13 Dose: 20 mg Ondansetron HCl (Zofran) 4 mg IVP Q8HR PRN PRN Reason: Nausea And Vomiting Stop: 01/16/18 21:36 Oxcarbazepine (Trileptal) 900 mg PO QAM [facility] Stop: 01/17/18 09:01 Last Admin: 07/20/17 09:26 Dose: 900 mg Oxcarbazepine (Trileptal) 1,200 mg PO HS [facility] Stop: 01/16/18 21:46 Last Admin: 07/19/17 20:52 Dose: 1,200 mg Laboratory Tests 07/17/17 07/17/17 07/17/17 17:53 17:53 22:19 Hgb Creatinine Troponin I 0.02 0.02 B-Natriuretic Peptide 158 H 07/18/17 07/18/17 07/20/17 04:02 09:44 06:48 Hgb 10.6 L Creatinine Troponin I 0.02 0.03 B-Natriuretic Peptide 07/20/17 06:48 Hgb Creatinine 1.02 Troponin I B-Natriuretic Peptide - Imaging and Cardiology Chest Xray: report reviewed Echo: report reviewed - EKG Interpretation EKG results cardiology: personally reviewed (ECG with SR, HR 62.), other ( Telemetry reviewed with average HR previous 12 hours noted to be 62, sinus rhythm. PVCS and PACs noted.) Consult Discharge Plan - Plan Instructions: Furosemide (By mouth), Potassium Chloride (By mouth), Heart Failure (DC) Referrals: Mateo Way, [Primary Care Provider] - (Call to schedule a follow-up appointment in 5-7 days) Prescriptions: Furosemide [Lasix] 20 mg PO DAILY #30 tablet Potassium Chloride 10 meq PO DAILY #30 tab.er.prt <Mateo Franklin - Last Filed: 07/20/17 22:03> Date of Encounter: 07/20/17 - Attending Attestation I have personally performed a face to face evaluation on this patient. I have reviewed and agree with the care plan. History and Exam by me shows: 1. Acute diastolic heart failure: now well compensated following IV diuresis. Note oral diuretic stopped two weeks ago due to hyponatremia, will be following closely with primary care, electrolytes ordered next week for follow up visit with primary care, discussed with pt need for close follow up. 2. Benign essential hypertension, better controlled with addition of oral diuretic. 3. Morbid obesity, discussed lifestyle changes with weight loss goal of 15 pounds over next six months, Assessment and Plan Discussion w patient/family: The assessment and plan as outlined above was discussed with the patient and/or family members who expressed understanding and agreement. All questions were answered. Thank you for involving us in the care of your patient. Please call with any questions. History of Present Illness History of present illness: Ms. Thorpe is a 57 year old female All Systems Review: A 10-system review of systems was performed and is negative for pertinent findings except as documented above in the HPI. Results 07/20/17 06:48 07/20/17 06:48 Lab Results 07/20/17 07/20/17 06:48 06:48 WBC 8.1 Hgb 10.6 L Hct 32.2 L Plt Count 327 Sodium 140 Potassium 3.4 L Chloride 102 Carbon Dioxide 26 BUN 19 Creatinine 1.02 Glucose 119 H Calcium 9.3
== END 2017-07-20 15:47 | disposition home or self-care (01) | DRG 292 ==
LOC: EMEROO 16:10 → 3BNU 16:10 → SUATTDRO 21:36
PROVIDERS: ADMIT Family Medicine; ATTEND Hospitalist

== ENCOUNTER 2020-11-04 03:15 | Inpatient (IN) ==
[2020-11-04] MEDS ORDERED: *HR* Atropine Sulfate 1 MG/10 ML SYRINGE ONE (03:29)
[2020-11-04] MEDS ORDERED: *HR* Heparin 5,000 UNIT/ML VIAL IVP ONE (03:29)
[2020-11-04] MEDS ORDERED: *HR* Ticagrelor 90 MG TABLET PO ONE (03:30)
[2020-11-04] MEDS ORDERED: Ondansetron 4 MG/2 ML VIAL IVP ONE ×2 (03:31→08:54)
[2020-11-04] MEDS ORDERED: Aspirin 325 MG TABLET PO ONE (03:32)
[2020-11-04] MEDS ORDERED: 0.9 % Sodium Chloride 1,000 ML ONE ×6 (03:34→14:34)
[2020-11-04] MEDS ORDERED: Lidocaine 2% Syringe 100 MG/5 ML ONE (03:37)
[2020-11-04] MEDS ORDERED: Heparin 1,000 UNITS/500 mL 500 ML ONE ×4 (04:03→12:36)
[2020-11-04] MEDS ORDERED: Nitroglycerin 1,000 MCG/10 ML VIAL IV ONE ×2 (04:03→12:36)
[2020-11-04] MEDS ORDERED: *HR* Heparin 10,000 UNIT/10 ML VIAL ONE ×2 (04:03→12:36)
[2020-11-04] MEDS ORDERED: ISOVUE-370 200 ML INFUS..BTL ONE ×2 (04:03→12:36)
[2020-11-04 04:17] LABS: Basophils # 0.1 K/mcL (0.0-0.2); Basophils % 0.4 %; Eosinophils % 0.2 %; Hematocrit 48.1 % (35.3-44.9); Hemoglobin 14.1 g/dL (11.5-15.4); Immature Granulocytes % 2.2 % (0-4); Lymphocytes # 4.3 K/mcL (0.6-4.6); Lymphocytes % 22.3 %; Mean Corpuscular HGB Conc 29.3 g/dL (31.6-35.5); Mean Corpuscular Hemoglobin 29.6 pg (28.0-33.3); Mean Corpuscular Volume 101.1 fL (83.0-100.0); Mean Platelet Volume 9.2 fL (9.4-12.4); Monocytes # 1.1 K/mcL (0.0-1.3); Neutrophils # 13.2 K/mcL (1.6-8.9); Nucleated Red Blood Cells 0.1 /100 WBC (0); Platelet Count 156 K/mcL (140-400); Red Blood Count 4.76 M/mcL (3.82-4.97); Red Cell Distribution Width 12.6 % (11.5-14.5); Segmented Neutrophils % 68.9 %; White Blood Count 19.1 K/mcL (4.3-11.1)
[2020-11-04 04:25] LABS: Calcium 9.1 mg/dL (8.6-10.3); Potassium 4.7 mEq/L (3.5-5.1)
[2020-11-04 04:27] LABS: Troponin I 1.76 ng/mL (< 0.04)
[2020-11-04 04:28] LABS: INR 1.2; Prothrombin Time 13.8 Seconds (9.4-12.1)
[2020-11-04] MEDS ORDERED: *HR* FentaNYL (PF) 100 MCG/2 ML VIAL ONE (04:31)
[2020-11-04] MEDS ORDERED: *HR* Midazolam HCl 2 MG/2 ML VIAL ONE (04:31)
[2020-11-04 04:52] LABS: Activated Partial Thrombo Time 146.8 Seconds (26.0-36.0)
[2020-11-04] MEDS ORDERED: *HR* Adenosine 6 MG/2 ML VIAL IVP ONE (05:00)
[2020-11-04] MEDS ORDERED: Ondansetron 4 MG/2 ML VIAL ONE (05:49)
[2020-11-04] MEDS ORDERED: Amiodarone Premix 150 MG/100 ML BAG IVPB ONE (05:53)
[2020-11-04] MEDS ORDERED: *HR* Phenylephrine 10 MG/ML VIAL ONE (06:00)
[2020-11-04] MEDS ORDERED: D5% in Water 250 ML ONE (06:00)
[2020-11-04] MEDS ORDERED: Amiodarone Premix 360 MG/200 ML BAG IVC ONE (06:27)
[2020-11-04] MEDS ORDERED: Perflutren Lipid Microsphere 1.3 ML in 0.9 % Sodium Chloride 8.7 ML IVP PRN ×2 (07:15→07:44)
[2020-11-04] MEDS ORDERED: Lidocaine -MPF 1% 5 ML AMPUL INFILT ONE (07:56)
[2020-11-04] MEDS ORDERED: Phenylephrine 10 MG in 0.9 % Sodium Chloride 250 ML IVC SCH (09:00)
[2020-11-04] MEDS ORDERED: Ondansetron 4 MG/2 ML VIAL IVP PRN (09:50)
[2020-11-04] MEDS: 0.9 % Sodium Chloride 1,000 ML IVC SCH ×2 (09:59→11:56)
[2020-11-04 10:30] LABS: Chol/HDL Ratio 6.1 (0-4.9)
[2020-11-04 10:34] LABS: Magnesium 2.3 mg/dL (1.6-2.6)
[2020-11-04 10:42] LABS: Thyroid Stimulating Hormone 0.886 mcIU/mL (0.340-5.600)
[2020-11-04 10:48] LABS: ABG Base Excess -10 mEq/L (-2 to 3); ABG HCO3 15 mEq/L (21-27); ABG Oxygen Saturation 99 % (95-98); ABG PCO2 33 mmHg (35-45); ABG PH 7.27 pH Units (7.32-7.45); ABG PO2 172 mmHg (85-104); ABG TCO2 16 mEq/L (20-26)
[2020-11-04] MEDS ORDERED: *HR* Dextrose 50 % in Water (Vial) 50 ML VIAL IVP PRN (11:02)
[2020-11-04] MEDS ORDERED: Dextrose Gel 15 GM/37.5 ML TUBE PO PRN ×2 (11:02)
[2020-11-04] MEDS ORDERED: D5% in Water 1,000 ML IVC PRN (11:02)
[2020-11-04] MEDS ORDERED: *HR* LORazepam 2 MG/ML VIAL IVP PRN (11:14)
[2020-11-04] MEDS ORDERED: Norepinephrine 4 MG/254 ML IV.SOLN IVC SCH ×2 (11:15→14:30)
[2020-11-04] MEDS ORDERED: Phenylephrine 50 MG in 0.9 % Sodium Chloride 250 ML IVC SCH (11:45)
[2020-11-04 12:00] LABS: VBG Ionized Calcium 1.06 mmol/L (1.15-1.35)
[2020-11-04] MEDS ORDERED: Insulin LISPRO 300 UNITS/3 ML VIAL SUBQ SCH (12:00)
[2020-11-04 12:24] LABS: Calcium 8.1 mg/dL (8.6-10.3); Magnesium 2.4 mg/dL (1.6-2.6); Phosphorous 6.4 mg/dL (2.7-4.5); Potassium 5.8 mEq/L (3.5-5.1)
[2020-11-04] MEDS ORDERED: 0.9 % Sodium Chloride 1,000 ML IVC ONE (12:25)
[2020-11-04] MEDS ORDERED: *HR* LORazepam 2 MG/ML VIAL IVP ONE (12:32)
[2020-11-04 12:46] LABS: Estimated Average Glucose 117 mg/dl; Hemoglobin A1C 5.7 %
[2020-11-04 12:57] LABS: Albumin 3.7 g/dL (3.5-5.7); Albumin/Globulin Ratio 1.5 (1.1-2.2); Globulin 2.4 g/dL (2.4-3.5); Total Protein 6.1 g/dL (6.4-8.9)
[2020-11-04] MEDS ORDERED: *HR* Midazolam HCl 2 MG/2 ML VIAL IV ONE (14:26)
[2020-11-04] MEDS ORDERED: Artificial Tears SOLN 15 ML BOTTLE BOTH EYES PRN (14:26)
[2020-11-04] MEDS ORDERED: FentaNYL (PF) 1,000 MCG/100 ML IV.SOLN IVC SCH (14:30)
[2020-11-04] MEDS ORDERED: Pantoprazole 40 MG VIAL IVP SCH (14:30)
[2020-11-04 15:20] LABS: ABG Base Excess -11 mEq/L (-2 to 3); ABG HCO3 16 mEq/L (21-27); ABG Oxygen Saturation 95 % (95-98); ABG PCO2 39 mmHg (35-45); ABG PH 7.22 pH Units (7.32-7.45); ABG PO2 89 mmHg (85-104); ABG TCO2 17 mEq/L (20-26)
[2020-11-04] MEDS ORDERED: Artificial Tears SOLN 15 ML BOTTLE BOTH EYES SCH (16:00)
[2020-11-04 16:16] LABS: Bilirubin,Total 0.4 mg/dL (0.3-1.0); Calcium 8.1 mg/dL (8.6-10.3); Potassium 5.8 mEq/L (3.5-5.1)
[2020-11-04 16:44] LABS: VBG Base Excess -11 mEq/L; VBG Chloride 108 mEq/L (98-107); VBG Glucose 176 mg/dl (65-95); VBG HCO3 18 mEq/L (21-27); VBG Ionized Calcium 1.11 mmol/L (1.15-1.35); VBG Oxygen Saturation 47 %; VBG PCO2 50 mmHg (41-51); VBG PH 7.16 pH Units (7.32-7.42); VBG PO2 33 mmHg (25-50); VBG Total CO2 20 mEq/L
[2020-11-04 17:21] VITALS: BP 117/61
[2020-11-04] MEDS ORDERED: *HR* Heparin 5,000 UNIT/ML VIAL SQ SCH (18:00)
[2020-11-04] MEDS ORDERED: *HR* Ticagrelor 90 MG TABLET PO SCH (18:00)
[2020-11-04] MEDS ORDERED: OXcarbazepine 150 MG TABLET PO SCH (18:00)
[2020-11-04] MEDS ORDERED: Chlorhexidine Rinse 15 ML MOUTHWASH MM SCH (21:00)
[2020-11-04] MEDS ORDERED: Budesonide/Formoterol 160/4.5 1 PUFF INH IH SCH (22:00)
[2020-11-05] MEDS ORDERED: Aspirin 81 MG TAB.CHEW PO SCH (09:00)
[2020-11-05] MEDS ORDERED: OXcarbazepine 150 MG TABLET PO SCH (09:00)
== END 2020-11-04 18:20 | disposition short-term general hospital (02) | DRG 246 ==
LOC: ICNU 03:15 → EMEROOARM 03:15 → OBSVTOIN 04:20 → ICNU 04:36
PROVIDERS: ADMIT Internal Medicine Cardiovascular Disease; ATTEND Internal Medicine Cardiovascular Disease

== ENCOUNTER 2020-12-02 15:54 | Observation (INO) ==
[2020-12-02] MEDS ORDERED: Isovue-370 500 ML BOTTLE IVP ONE (17:41)
[2020-12-02 17:53] LABS: Basophils # 0.1 K/mcL (0.0-0.2); Basophils % 0.7 %; Eosinophils # 0.3 K/mcL (0.0-0.6); Eosinophils % 3.9 %; Hematocrit 33.2 % (35.3-44.9); Hemoglobin 10.5 g/dL (11.5-15.4); Immature Granulocytes % 0.4 % (0-4); Lymphocytes # 1.2 K/mcL (0.6-4.6); Mean Corpuscular HGB Conc 31.6 g/dL (31.6-35.5); Mean Corpuscular Hemoglobin 31.1 pg (28.0-33.3); Mean Corpuscular Volume 98.2 fL (83.0-100.0); Monocytes # 0.7 K/mcL (0.0-1.3); Monocytes % 8.9 %; Neutrophils # 5.4 K/mcL (1.6-8.9); Platelet Count 284 K/mcL (140-400); Red Blood Count 3.38 M/mcL (3.82-4.97); Red Cell Distribution Width 16.6 % (11.5-14.5); Segmented Neutrophils % 71.1 %; White Blood Count 7.7 K/mcL (4.3-11.1)
[2020-12-02 18:22] LABS: Calcium 9.4 mg/dL (8.6-10.3); Potassium 3.6 mEq/L (3.5-5.1)
[2020-12-02] MEDS ORDERED: 0.9 % Sodium Chloride 1,000 ML IVC ONE (18:32)
[2020-12-02] MEDS ORDERED: Piperacillin/Tazobactam 3.375 GM in 0.9 % Sodium Chloride Mini Bag 100 ML IVPB ONE (23:30)
[2020-12-03] MEDS ORDERED: *HR* HYDROcodone/Acet 5/325 mg TABLET PO PRN (00:14)
[2020-12-03] MEDS ORDERED: Acetaminophen 325 MG TABLET PO PRN (00:14)
[2020-12-03] MEDS ORDERED: *HR* OxyCODONE Immed Rel 5 MG TABLET PO PRN (00:14)
[2020-12-03] MEDS ORDERED: Naloxone 0.4 MG/ML INJ IVP PRN (00:14)
[2020-12-03] MEDS ORDERED: Ondansetron 4 MG/2 ML VIAL IVP PRN (00:14)
[2020-12-03] MEDS ORDERED: D5% in Water 1,000 ML IVC PRN (00:17)
[2020-12-03] MEDS ORDERED: Dextrose Gel 15 GM/37.5 ML TUBE PO PRN ×2 (00:17)
[2020-12-03] MEDS ORDERED: *HR* Dextrose 50 % in Water (Vial) 50 ML VIAL IVP PRN (00:17)
[2020-12-03 02:56] LABS: Bilirubin,Urine Negative (Negative); Blood,Urine Small (Negative); Clarity,Urine Clear (Clear); Color,Urine Light-Yellow (Yellow); Glucose,Urine (UA) Normal (Normal); Ketones,Urine Negative (Negative); Leukocyte Esterase,Urine Large (Negative); Nitrite,Urine Negative (Negative); PH,Urine 6.5 pH Units (5.0-8.0); Protein,Urine 50 mg/dL (Neg-Trace); RBC,Urine 15-30 per hpf (0-3); Specific Gravity,Urine > 1.030 (1.010-1.025); Squamous Epithelial Cell,Urine Few per hpf (None-Few); Urobilinogen,Urine Normal (Normal); WBC,Urine TNTC per hpf (0-3)
[2020-12-03] MEDS ORDERED: Vancomycin 2,000 MG/520 ML IV.SOLN IVPB ONE (03:00)
[2020-12-03] MEDS ORDERED: Vancomycin 1,750 MG in 0.9 % Sodium Chloride 250 ML IVPB SCH (03:00)
[2020-12-03 05:18] LABS: INR 1.2; Prothrombin Time 14.1 Seconds (9.4-12.1)
[2020-12-03 05:25] LABS: Calcium 8.7 mg/dL (8.6-10.3); Magnesium 1.6 mg/dL (1.6-2.6); Potassium 3.2 mEq/L (3.5-5.1)
[2020-12-03] MEDS: MetroNIDAZOLE 500 MG/100 ML 500 MG/100 ML BAG IVPB SCH ×2 (05:33→12:28)
[2020-12-03 05:49] LABS: Basophils # 0.1 K/mcL (0.0-0.2); Basophils % 0.7 %; Eosinophils # 0.4 K/mcL (0.0-0.6); Eosinophils % 5.3 %; Hematocrit 31.4 % (35.3-44.9); Hemoglobin 9.9 g/dL (11.5-15.4); Immature Granulocytes % 0.3 % (0-4); Lymphocytes # 1.2 K/mcL (0.6-4.6); Lymphocytes % 17.3 %; Mean Corpuscular HGB Conc 31.5 g/dL (31.6-35.5); Mean Corpuscular Hemoglobin 31.3 pg (28.0-33.3); Mean Corpuscular Volume 99.4 fL (83.0-100.0); Mean Platelet Volume 9.2 fL (9.4-12.4); Monocytes # 0.7 K/mcL (0.0-1.3); Monocytes % 9.7 %; Platelet Count 261 K/mcL (140-400); Red Blood Count 3.16 M/mcL (3.82-4.97); Red Cell Distribution Width 16.5 % (11.5-14.5); Segmented Neutrophils % 66.7 %; White Blood Count 6.8 K/mcL (4.3-11.1)
[2020-12-03 07:14] LABS: Neutrophils # 4.5 K/mcL (1.6-8.9)
[2020-12-03] MEDS ORDERED: Piperacillin/Tazobactam 3.375 GM in 0.9 % Sodium Chloride Mini Bag 100 ML IVPB SCH (08:00)
[2020-12-03] MEDS: Insulin LISPRO 300 UNITS/3 ML VIAL SUBQ SCH ×3 (08:55→16:30)
[2020-12-03] MEDS: Cefepime HCl 2,000 MG in Water for inj. (sterile) 20 ML IVP SCH ×2 (10:05→15:49)
[2020-12-03] MEDS ORDERED: Aspirin Enteric Coated 81 MG Tablet PO SCH (13:15)
[2020-12-03 15:26] VITALS: BP 130/52
[2020-12-03] MEDS ORDERED: Insulin LISPRO 300 UNITS/3 ML VIAL SUBQ SCH (21:00)
[2020-12-04] MEDS ORDERED: Vancomycin 1,250 MG/262.5 ML IV.SOLN IVPB SCH (03:00)
== END 2020-12-03 17:17 | disposition short-term general hospital (02) ==
LOC: EMEROOARM 15:54 → 2NENU 15:54
PROVIDERS: ADMIT Student in an Organized Health Care Education/Training Program; ATTEND Student in an Organized Health Care Education/Training Program